=== PATIENT | female | born 1955 | race Caucasian/White ===

== ENCOUNTER 2022-09-12 20:48 | Emergency (ER) | payer MEDICARE, MEDICAID ==
[~2022-09-12] VITALS: Ht 154.9 cm; Wt 67.6 kg
[2022-09-12 20:50] VITALS: BP 173/100
--- NOTE | 2022-09-12 21:03 | NUR ---
PT TP BED 2
--- NOTE | 2022-09-12 21:52 | NUR ---
PT TO CT
--- NOTE | 2022-09-12 22:40 | NUR ---
DR. BROWN AT BEDSIDE
[2022-09-12 23:40] VITALS: BP 152/88
--- NOTE | 2022-09-12 23:40 | NUR ---
Patient discharged with v/s stable. Written and verbal after care instructions given and explained. Patient verbalized understanding. Ambulatory with by caregiver. All questions addressed prior to discharge. Advised to follow up with PMD.
== END 2022-09-12 23:40 | disposition home or self-care (01) ==
LOC: MED 20:48 → EDBD 20:48 → MED 23:40
DX: S09.90XA Unspecified injury of head, initial encounter (principal); V89.2XXA Person injured in unspecified motor-vehicle accident, traffic, initial encounter; Y93.89 Activity, other specified; Y92.89 Other specified places as the place of occurrence of the external cause; Y99.8 Other external cause status
CPT/HCPCS: 70450; 72125; 99284